=== PATIENT | female | born 1945 | race African-American/Black ===

== ENCOUNTER 2024-08-05 17:36 | Inpatient (IN) | payer OTHER, MEDICAID ==
[~2024-08-05] VITALS: Ht 170.2 cm; Wt 79.8 kg
[~2024-08-05 17:36] MED LIST: AMLO10TA4 PO; BRIM10DR2 EACHEYE; CLON0.1T PO; DOCU-422 PO; HYDR-4001 PO; MONT-46 PO; PEG15DRO4 OT; PRED5DRO22 BOTHEYE; ROSU5TAB PO
[2024-08-05 18:28] LABS: HEMATOCRIT. 25.4 % (36.0-48.0); HEMOGLOBIN. 8.3 g/dL (12.0-16.0); MEAN CORPUSCULAR HGB CONC 32.6 g/dL (31.0-37.0); MEAN CORPUSCULAR VOLUME 88.9 fL (81.0-99.0); MEAN PLATELET VOLUME 7.9 fl (7.4-10.4); PLATELET 550 x1000/uL (130-400); RED BLOOD CELL COUNT 2.86 mill/uL (4.2-5.4); RED CELL DISTRIBUTION WIDTH 16.5 % (11.6-14.6); WHITE BLOOD COUNT 14.1 x1000/uL (4.5-11.0)
[2024-08-05 18:31] LABS: DIFFERENTIAL COMMENT 1
[2024-08-05 18:33] LABS: CARBON DIOXIDE 25 mEq/L (21-32); CHLORIDE 101 mEq/L (98-107); POTASSIUM 5.1 mEq/L (3.5-5.1); SODIUM 132 mEq/L (136-145)
[2024-08-05 18:39] LABS: GLUCOSE 209 mg/dL (70-105); TROPONIN I HIGH SENSITIVITY 8 ng/L (3.0-34); UREA NITROGEN BLOOD 72 mg/dL (9-23)
[2024-08-05 18:41] LABS: ALANINE AMINOTRANSFERASE 24 IU/L (10-49); ALBUMIN 3.4 g/dL (3.2-4.8); ASPARTATE AMINOTRANSFERASE 29 IU/L (<34); BILIRUBIN DIRECT 0.2 mg/dL (<=3.0); BILIRUBIN TOTAL 0.6 mg/dL (0.1-1.0); PROTEIN TOTAL 6.5 g/dL (6.0-8.3)
[2024-08-05 18:50] LABS: ANISOCYTOSIS 1+; PLATELET ESTIMATE INCREASED
[2024-08-05 18:53] LABS: INR 0.9; PROTHROMBIN TIME 10.3 sec (9.6-11.0)
[2024-08-05 19:00] LABS: CREATININE 2.5 mg/dL (0.6-1.0)
[2024-08-06 00:04] LABS: TROPONIN I HIGH SENSITIVITY 8 ng/L (3.0-34)
[2024-08-06] MEDS: CEFTRIAXONE 1GM/50ML 50 ML IV ONE (00:30)
[2024-08-06] MEDS: SODIUM CHLORIDE 0.9% 500 ML IV ONE (01:00)
[2024-08-06 06:28] VITALS: BP 153/62; PULSE 89; RESP 16; TEMP 36.05844; O2SAT 99
[2024-08-06 08:00] VITALS: BP 142/67; PULSE 83; RESP 16; TEMP 36.22512; O2SAT 100
[2024-08-06] MEDS ORDERED: MAGNESIUM/ALUMINUM HYDROXIDE/SIMETHICONE 30ML UDC PO PRN (08:30)
[2024-08-06] MEDS ORDERED: CLONIDINE 0.1MG TABLET PO PRN (08:30)
[2024-08-06] MEDS ORDERED: IPRATROPIUM/ALBUTEROL 0.5-3(2.5)MG/3ML NEB HHN PRN (08:30)
[2024-08-06] MEDS ORDERED: ACETAMINOPHEN 325MG TABLET PO PRN (08:30)
[2024-08-06] MEDS ORDERED: DEXTROSE 50% WATER 50ML SYRINGE IV PRN (08:30)
[2024-08-06] MEDS ORDERED: ONDANSETRON HCL 4MG/2ML INJ IV PRN (08:30)
[2024-08-06] MEDS ORDERED: ATOR20TA65 PO (08:31)
[2024-08-06] MEDS ORDERED: LOSA50TA41 PO (08:31)
[2024-08-06] MEDS ORDERED: ONDA-239 PO (08:31)
[2024-08-06] MEDS ORDERED: OXYC-485 PO (08:31)
[2024-08-06] MEDS ORDERED: AMLO10TA80 PO (08:31)
[2024-08-06] MEDS ORDERED: BISA-145 PO (08:31)
[2024-08-06] MEDS ORDERED: MONT-39 PO (08:31)
[2024-08-06] MEDS ORDERED: OMEP20CA14 PO (08:31)
[2024-08-06] MEDS ORDERED: POLY119P3 PO (08:31)
[2024-08-06] MEDS ORDERED: ASPI81TA43 PO (08:31)
[2024-08-06] MEDS ORDERED: SODIUM CHLORIDE 0.9% 1,000 ML IV SCH (09:00)
[2024-08-06] MEDS: ASPIRIN 81MG TABLET PO SCH (09:28)
[2024-08-06] MEDS: AMLODIPINE 10MG TABLET PO SCH (09:28)
[2024-08-06 11:00] LABS: CLARITY URINE CLEAR (CLEAR); COLOR URINE YELLOW (YELLOW); GLUCOSE URINE NEGATIVE (NEGATIVE); KETONES URINE NEGATIVE (NEGATIVE); LEUKOCYTE ESTERASE URINE NEGATIVE (NEGATIVE); NITRITE URINE NEGATIVE (NEGATIVE); OCCULT BLOOD URINE 1+ (NEGATIVE); PROTEIN URINE NEGATIVE (NEGATIVE); SPECIFIC GRAVITY URINE 1.007 (1.005-1.030)
[2024-08-06 11:09] LABS: HEMATOCRIT. 26.3 % (36.0-48.0); HEMOGLOBIN. 8.3 g/dL (12.0-16.0); MEAN CORPUSCULAR HEMOGLOBIN 28.3 pg (28.0-32.0); MEAN CORPUSCULAR HGB CONC 31.5 g/dL (31.0-37.0); MEAN PLATELET VOLUME 8.4 fl (7.4-10.4); PLATELET 572 x1000/uL (130-400); RED BLOOD CELL COUNT 2.93 mill/uL (4.2-5.4); RED CELL DISTRIBUTION WIDTH 16.3 % (11.6-14.6)
[2024-08-06 11:14] LABS: DIFFERENTIAL COMMENT 1
[2024-08-06 11:21] LABS: CHLORIDE 101 mEq/L (98-107); POTASSIUM 5.1 mEq/L (3.5-5.1); SODIUM 134 mEq/L (136-145)
[2024-08-06 11:22] LABS: CALCIUM 9.3 mg/dL (8.7-10.4); CARBON DIOXIDE 23 mEq/L (21-32)
[2024-08-06 11:27] LABS: CREATININE 2.8 mg/dL (0.6-1.0); GLUCOSE 209 mg/dL (70-105); IRON 22 ug/dL (50-170); TRIGLYCERIDE 63 mg/dL (0-150)
[2024-08-06 11:28] LABS: LDL CHOLESTEROL 59 mg/dL (5-100); UREA NITROGEN BLOOD 69 mg/dL (9-23)
[2024-08-06 11:29] LABS: ALANINE AMINOTRANSFERASE 20 IU/L (10-49); ALBUMIN 3.2 g/dL (3.2-4.8); ASPARTATE AMINOTRANSFERASE 26 IU/L (<34); BILIRUBIN DIRECT 0.2 mg/dL (<=3.0); CHOLESTEROL 113 mg/dL (<200); CREATINE KINASE 72 IU/L (34-145); HDL CHOLESTEROL 30 mg/dL (>65)
[2024-08-06 11:30] LABS: BILIRUBIN TOTAL 0.5 mg/dL (0.1-1.0); PROTEIN TOTAL 6.2 g/dL (6.0-8.3); THYROID STIMULATING HORMONE 2.23 uIU/mL (0.55-4.78)
[2024-08-06 11:34] LABS: VITAMIN B12 SERUM 1124 pg/mL (211-911)
[2024-08-06] MEDS: BLOOD SUGAR DIAGNOSTIC STRIP TEST SCH (11:45)
[2024-08-06 11:50] LABS: BACTERIA URINE 1+; RBC URINE 0-2 /hpf (0-2); YEAST URINE NONE SEEN
[2024-08-06 11:51] LABS: SQUAMOUS EPITHELIAL CELL URINE FEW /lpf (RARE/1+)
[2024-08-06 12:00] VITALS: BP 137/54; PULSE 88; RESP 20; TEMP 36.16956; O2SAT 100
[2024-08-06] MEDS: INSULIN LISPRO 100 UNITS/ML SUBCUT SCH (12:15)
[2024-08-06 12:28] LABS: TOTAL IRON BINDING CAPACITY > 670 ug/dl (250-425)
[2024-08-06 16:00] VITALS: BP 140/51; PULSE 91; RESP 18; TEMP 36.22512; O2SAT 98
[2024-08-06] MEDS: MONTELUKAST SODIUM 10MG TABLET PO SCH (17:35)
[2024-08-06 20:00] VITALS: BP 148/52; PULSE 91; RESP 18; TEMP 36.16956; O2SAT 98
[2024-08-06] MEDS ORDERED: CEFTRIAXONE 1GM/50ML 50 ML IV SCH (21:00)
[2024-08-06] MEDS ORDERED: FAMOTIDINE 20MG TABLET PO SCH (21:00)
[2024-08-06 21:37] VITALS: BP 125/57; PULSE 90; TEMP 98.4; O2SAT 97
[2024-08-07 06:31] LABS: ANISOCYTOSIS 1+; PLATELET ESTIMATE MARKEDLY INCREASED
== END 2024-08-06 22:30 | disposition short-term general hospital (02) | DRG 872 ==
LOC: ER 17:36 → 5WST 08-06 00:17 → EDBEDREQ 08-06 02:32 → EDBEDREQSVC 08-06 02:32 → EDBEDREQDT 08-06 02:32 → EDBEDREQTM 08-06 02:32
PROVIDERS: ADMIT Hospitalist; ATTEND Hospitalist
DX: A41.9 Sepsis, unspecified organism (principal); N13.6 Pyonephrosis; N17.9 Acute kidney failure, unspecified; E87.1 Hypo-osmolality and hyponatremia; A04.9 Bacterial intestinal infection, unspecified; E11.9 Type 2 diabetes mellitus without complications; E78.00 Pure hypercholesterolemia, unspecified; D64.9 Anemia, unspecified; A08.4 Viral intestinal infection, unspecified; E87.5 Hyperkalemia; H54.61 Unqualified visual loss, right eye, normal vision left eye; I10 Essential (primary) hypertension; K44.9 Diaphragmatic hernia without obstruction or gangrene; J45.909 Unspecified asthma, uncomplicated; K57.30 Diverticulosis of large intestine without perforation or abscess without bleeding; Z96.642 Presence of left artificial hip joint; Z79.82 Long term (current) use of aspirin; Z79.899 Other long term (current) drug therapy
CPT/HCPCS: 36415; 71045; 74176; 80048; 80061; 80076; 81003; 82550; 82553; 82607; 82746; 82962; 83036; 83540; 83550; 84439; 84443; 84484; 85025; 93005; 93970; 99291; J0696; J1815